=== PATIENT | male | born 1970 | race Caucasian/White ===

== ENCOUNTER 2019-11-13 11:38 | Emergency (ER) | payer OTHER, SELFPAY ==
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
[2019-11-13 11:41] VITALS: BP 152/99; PULSE 89; RESP 16; TEMP 36.7; O2SAT 96
[2019-11-13] MEDS: IBUPROFEN 600 MG TABLET PO (13:21)
[2019-11-13] MEDS: ACETAMINOPHEN 500 MG TABLET 1000 MG PO (13:22)
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
[2019-11-13 13:52] VITALS: TEMP 36.7
[2019-11-13 14:19] VITALS: BP 130/99; PULSE 78; RESP 18; O2SAT 94
== END 2019-11-13 15:16 | disposition home or self-care (01) ==
PROVIDERS: Emergency Provider Emergency Medicine; PCP Family Medicine
DX: S13.9XXA Sprain of joints and ligaments of unspecified parts of neck, initial encounter (principal); S90.112A Contusion of left great toe without damage to nail, initial encounter; I25.10 Atherosclerotic heart disease of native coronary artery without angina pectoris; E78.5 Hyperlipidemia, unspecified; I11.9 Hypertensive heart disease without heart failure; I25.2 Old myocardial infarction; Z95.5 Presence of coronary angioplasty implant and graft; Z87.891 Personal history of nicotine dependence; V43.52XA Car driver injured in collision with other type car in traffic accident, initial encounter
CPT/HCPCS: 72100; 72125; 73030; 73110; 73564; 73660; 99284; A9270

== ENCOUNTER → 2020-01-17 10:43 | Outpatient (CLI) | payer OTHER, SELFPAY ==
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
== END ==
PROVIDERS: PCP Family Medicine; Visit Provider Physician Assistant
DX: R51.9 Headache, unspecified (principal)
CPT/HCPCS: 70450

== ENCOUNTER 2020-05-20 08:41 | Emergency (ER) | payer OTHER, SELFPAY ==
[2020-05-20 08:54] VITALS: BP 146/99; PULSE 87; RESP 20; TEMP 36.7; O2SAT 97
--- NOTE | 2020-05-20 09:06 | ED.URI ---
HPI - URI/Sore Throat General Chief Complaint: Upper Respiratory Infection Stated Complaint: cough/eye irritation/congestion Time Seen by Provider: 05/20/20 08:53 Source: patient and RN notes reviewed Mode of arrival: ambulatory Limitations: no limitations History of Present Illness HPI Narrative: Patient presents today with a 12-day history of dry cough, shortness of breath at times, usually with extended coughing episodes. He does report some left eye redness and irritation x2 days. Denies sneezing, congestion, rhinorrhea, sore throat, fever, headache, nausea, vomiting, diarrhea. No history of asthma or COPD. He has been using Mucinex x2 days, which has been providing some mild relief. He had been using some DayQuil for several days without relief. He got his second COVID-19 vaccination 2 weeks ago. Denies history of environmental or seasonal allergies. MD elicited complaint: cough Related Data Home Medications Medication Instructions Recorded Confirmed aspirin 81 mg tablet,delayed 81 mg PO DAILY 04/14/19 01/05/20 release atorvastatin 80 mg tablet 80 mg PO DAILY 04/14/19 01/05/20 metoprolol succinate 25 mg 25 mg PO DAILY 04/14/19 01/05/20 tablet,extended release 24 hr Allergies Allergy/AdvReac Type Severity Reaction Status Date / Time cephalexin Allergy Severe rash Verified 01/05/20 09:48 Review of Systems Review of Systems: Narrative: CONSTITUTIONAL: Denies body aches, fever, chills, or sweats. EYES: Denies visual changes,or discharge. + Left eye redness ENT: Denies rhinorrhea, congestion, sore throat, or otalgia. CARDIOVASCULAR: Denies chest pain, palpitations, or edema. RESPIRATORY: + Cough, shortness of breath GASTROINTESTINAL: Denies abdominal pain, nausea, vomiting, or diarrhea. GENITOURINARY: Denies dysuria or hematuria. SKIN: Denies rash, itching, or wounds. MUSCULOSKELETAL: Denies back pain, joint pain, or myalgia. NEUROLOGIC: Denies headache, numbness, tingling, or weakness. PSYCH: Denies depression or anxiety. [facility] Past Medical History Medical History (Updated 05/20/20 @ 09:11 by Samantha Boyle, SPINDRAW OPERATOR, ) CAD (coronary artery disease) HLD (hyperlipidemia) Hypertension with heart disease [place] (myocardial infarction) Surgical History Surgical History Status post primary angioplasty with coronary stent Social History Social History Smoking packs per day: 1 Smoking cigarettes per day: 20.0 Years smoked: 18 Smoking pack-years: 18.00 Smoking status: Former smoker Tobacco type: cigarettes Second hand tobacco smoke exposure: No Smoking end date: 02/17/06 Alcohol intake: current Substance use: never Substance use type: does not use Gender identity (if verbalized by the patient): Male Comments At time of signature, I have reviewed and agree with nursing past medical, surgical, social and family history unless otherwise noted. Please see nursing chart for further information. There is no relevant family history pertinent to the presenting complaint Exam Narrative: Exam Narrative: GENERAL: Well-appearing, well-nourished, and in no acute distress. HEAD: Normocephalic, atraumatic. EYES: EOMI. Left eye with injected conjunctiva and chemosis. Right eye with chemosis. No active drainage. ENT: Mucous membranes pink and moist. Nares clear. No rhinorrhea. TMs normal bilaterally. Throat normal. Uvula midline. NECK: Normal AROM. Supple. No lymphadenopathy. CHEST: No respiratory distress. Clear to auscultation. HEART: Regular rate and rhythm. No murmur appreciated. Normal peripheral pulses. EXTREMITIES: Normal range of motion. No edema. SKIN: Warm, dry, no rash. Capillary refill normal. Normal skin turgor. NEURO: No focal deficits. Alert and oriented x3. Gait steady. PSYCH: Normal affect. No signs of depression or anxiety. Course Vital Si
== END 2020-05-20 09:24 | disposition home or self-care (01) ==
PROVIDERS: Emergency Provider Nurse Practitioner; PCP Family Medicine
DX: J40 Bronchitis, not specified as acute or chronic (principal); J30.9 Allergic rhinitis, unspecified; H10.13 Acute atopic conjunctivitis, bilateral; Z87.891 Personal history of nicotine dependence; I25.10 Atherosclerotic heart disease of native coronary artery without angina pectoris; E78.5 Hyperlipidemia, unspecified; I11.9 Hypertensive heart disease without heart failure; I25.2 Old myocardial infarction; Z79.82 Long term (current) use of aspirin; Z95.5 Presence of coronary angioplasty implant and graft
CPT/HCPCS: 99213; G0463

== ENCOUNTER → 2021-02-03 08:36 | Outpatient (CLI) | payer OTHER, SELFPAY ==
--- NOTE | ~2021-02-03 | XR_ITS ---
XR ankle LT 2V 02/03/2021 10:01 INDICATION: Left ankle pain PROCEDURE: 2 views left ankle COMPARISON: No prior studies for comparison. FINDINGS: Fracture, dislocation or subluxation is not identified. Ankle mortise intact. The soft tiss ues appear within normal limits. No foreign bodies are identified. IMPRESSION: 1: NO ACUTE BONE OR JOINT ABNORMALITY IDENTIFIED. Reviewed, dictated and finalized at location A. R BUILDER WINDER
--- NOTE | ~2021-02-03 | XR_ITS ---
XR hip LT 2V w AP pelvis 02/03/2021 10:01 Indication: Left hip pain Procedure: 3 views left hip including AP pelvis Comparison: No prior studies for comparison. Findings: Pelvic rings are intact. Mild symmetric osteoarthritis of the hips. Sacral foramen are symm etric. No acute fracture or traumatic malalignment. Impression: 1: No acute bone or joint abnormality. Reviewed, dictated and finalized at location A. NTAMINATION WORKER Impression: 1: No acute bone or joint abnormality.
== END ==
PROVIDERS: PCP Family Medicine; Visit Provider Family Medicine
DX: M25.572 Pain in left ankle and joints of left foot (principal); M25.552 Pain in left hip
CPT/HCPCS: 73502; 73600

== ENCOUNTER → 2021-02-28 08:46 | Outpatient (CLI) | payer OTHER, SELFPAY ==
--- NOTE | ~2021-02-28 | MR_ITS ---
EXAMINATION: MR hip LT wo con DATE: 02/28/2021 09:45 INDICATION: Articular cartilage disorder with worsening left hip pain over the past 8-9 months TECHNIQUE: Magnetic resonance imaging (MRI) of the left hip was performed without intravenous contra st. Sequences included full-field axial PD-weighted FS FSE and T1-weighted FSE, coronal of the pelvis with PD-weighted FS FSE, T2-weighted FSE and T1-weighted FSE, small field of view of the left hip wi th axial PD-weighted FS FSE, sagittal PD-weighted FS FSE, coronal PD-weighted FS FSE and coronal T2 weighted FSE. Additional radial T1-weighted FGR oriented orthogonal to the acetabular rim were obtain ed for evaluation of the labrum. COMPARISON: None FINDINGS: Bones/labrum/cartilage: Alignment is normal. No fracture, avascular necrosis or pathologic marrow replacing process. Mild pa rtial-thickness cartilage loss with smooth chondral surface of the humeral head and acetabulum at the anterior and posterior aspect of the joint space. Minimal subarticular increased signal along the po sterior rim of the acetabulum. There is mild degeneration of the posterior to posterosuperior left ac etabular labrum. Mild cystic change at the margin of the articular surface of the posterior superior left femoral head. Fluid: Symmetric physiologic amount of fluid within both hip joints. Soft tissues: Normal and symmetric muscle bulk and signal in the pelvis and visualized proximal thighs. The iliopso as, gluteal and proximal hamstring tendons are normal. There are few diverticula along the sigmoid co debbie without adjacent inflammatory change to suggest diverticulitis. 5 mm focus of intramural fat at t he left anterior bladder wall which has been present since CT dated 01/10/2017. Limited evaluation of visceral organs of the pelvis is otherwise unremarkable. No pathologically enlarged pelvic/inguinal lymphadenopathy. IMPRESSION: 1. Mild left hip osteoarthritis with degeneration of the posterior to posterosuperior left acetabular labrum. Reviewed, dictated and finalized at location A. T OF WAY SUPERVISOR IMPRESSION: 1. Mild left hip osteoarthritis with degeneration of the posterior to posterosu perior left acetabular labrum.
== END ==
PROVIDERS: PCP Family Medicine; Visit Provider Orthopaedic Surgery
DX: M24.152 Other articular cartilage disorders, left hip (principal); M16.12 Unilateral primary osteoarthritis, left hip
CPT/HCPCS: 73721

== ENCOUNTER 2021-03-21 12:22 | Outpatient (CLI) | payer OTHER, SELFPAY ==
--- NOTE | ~2021-03-21 | XR_ITS ---
EXAMINATION: XR lg joint inject/asp w image DATE: 03/21/2021 13:11 INDICATION: Left hip arthritis with pain TECHNIQUE: A time-out was performed to verify the patient's name, date of , and procedure to b e performed. The procedure including the risks, benefits, and alternatives was discussed with the pat ient. Risks discussed included bleeding and infection. The patient understood the risks and agreed to proceed. The skin overlying the left hip joint was prepped and draped in usual sterile fashion. An esthetic was administered with 1% lidocaine subcutaneously. A 22 G needle was advanced under fluoros copic guidance into the joint. Injection of 1 mL of Omnipaque 240 confirmed intra-articular position of the needle. Subsequently, injectate consisting of 4 mL of a 1:1 mixture of 0.5% bupivacaine: 40 mg/mL Depo-Medrol for a total dosage of 80 mg Depo-Medrol was instilled. Washout of contrast was seen confirming intra-articular administration. The needle was removed and the entry site was cleaned and dressed. There were no immediate complications. Fluoroscopy exposure time was 0.1 minutes. The tota l number of images was 2. Total DAP was 0.783 mGycm^2 FINDINGS: Real-time fluoroscopy demonstrates the needle in the left hip joint. Patient's pain prior t o procedure:08/26. Patient's pain following the procedure: 03/29. IMPRESSION: 1. Successful left hip joint injection of local anesthetic and steroid with decrease in the patient's presenting pain. Reviewed, dictated and finalized at location A. UTER SYSTEMS ENGINEER IMPRESSION: 1. Successful left hip joint injection of local anesthetic and steroid with dec rease in the patient's presenting pain.
== END 2021-03-21 12:23 | disposition home or self-care (01) ==
PROVIDERS: PCP Family Medicine; Visit Provider Orthopaedic Surgery
DX: M25.552 Pain in left hip (principal)
CPT/HCPCS: 20610; 77002; Q9966

== ENCOUNTER 2021-03-26 00:39 | Day surgery (SDC) | payer OTHER, SELFPAY ==
[2021-03-13 13:55] VITALS: BMI 29.9
--- NOTE | 2021-03-25 17:54 | PM.HPGS ---
History of Present Illness History of Present Illness Consent: Risks, benefits, and alternatives have been discussed and questions answered. Patient agrees to proceed with procedure. 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 HLD (hyperlipidemia) Hypertension with heart disease [place] (myocardial infarction) Other spondylosis with radiculopathy, lumbar region Weight gain Surgical History Surgical History H/O excision of mass 03/01/21 excision of 3 cm back mass Back mass 2012 Status post primary angioplasty with coronary stent x3 2007 Family History Family History Other HLD (hyperlipidemia) Hypertension Social History Social History Smoking status: Former smoker Tobacco type: smokeless tobacco Smokeless tobacco user: chewing tobacco Second hand tobacco smoke exposure: No Smoking end date: 02/17/06 Additional smoking assessment comments: Former smoker of Cigarettes Alcohol intake: current Alcohol use details: rare Substance use: never Substance use type: does not use Living arrangements: with family 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 Gender identity (if verbalized by the patient): Male Spiritual care concerns: No Meds Home Medications and Allergies Home Medications Medication Instructions Recorded Confirmed Type aspirin 81 mg tablet,delayed 81 mg PO DAILY 04/14/19 03/13/21 History release atorvastatin 80 mg tablet 80 mg PO DAILY 04/14/19 03/13/21 History metoprolol succinate 25 mg 25 mg PO DAILY 04/14/19 03/13/21 History tablet,extended release 24 hr Allergies Allergy/AdvReac Type Severity Reaction Status Date / Time cephalexin Allergy Severe rash Verified 03/26/21 09:41 Exam Resp: Auscultation: clear to auscultation bilaterally Cardio: Rate: regular rate Rhythm: regular rhythm GI: GI Palp: Yes Soft to palpation and No Tenderness to palpation present (GI) Assessment and Plan Assessment and plan (1) Colon cancer screening: Code(s): Z12.11 - Encounter for screening for malignant neoplasm of colon Status: Acute Assessment and Plan: Colonoscopy with possible biopsy or polypectomy or cautery or injection of substances.
[2021-03-26 09:42] VITALS: BP 136/94; PULSE 94; RESP 18; TEMP 37.1; O2SAT 96
--- NOTE | 2021-03-26 09:47 | WPDANESEPPF ---
Anes - Initial Pre Proc Eval Procedure: Operation Date: 03/26/21 11:00 Proposed Procedures p Screening Colonoscopy - Tenzin Gleason MD Date/Time: 03/26/21 09:47 Surgeon: Tenzin Gleason MD Pre Op Diagnosis: neoplasm screening Patient Data Age: 51 Gender: M Height: 1.83 m Weight: 113.8 kg Last Vital Signs Temp 37.1 C 03/26/21 09:42 Pulse 94 03/26/21 09:42 Resp 18 03/26/21 09:42 BP 136/94 H 03/26/21 09:42 Pulse Ox 96 03/26/21 09:42 Allergies Allergy/AdvReac Type Severity Reaction Status Date / Time cephalexin Allergy Severe rash Verified 03/26/21 09:41 Home Medications Medication Instructions Recorded Confirmed Type aspirin 81 mg tablet,delayed 81 mg PO DAILY 04/14/19 03/13/21 History release atorvastatin 80 mg tablet 80 mg PO DAILY 04/14/19 03/13/21 History metoprolol succinate 25 mg 25 mg PO DAILY 04/14/19 03/13/21 History tablet,extended release 24 hr Patient hx anesthesia problems: none Family hx anesthesia problems: none Results Review: All pre-operative results and documents have been reviewed as part of the pre-operative evaluation. 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 HLD (hyperlipidemia) Hypertension with heart disease [place] (myocardial infarction) Other spondylosis with radiculopathy, lumbar region Weight gain Surgical History Surgical History (Updated 03/26/21 @ 07:40 by Jesse Delacruz DO) H/O excision of mass 03/01/21 excision of 3 cm back mass Back mass 2012 Status post primary angioplasty with coronary stent x3 2007 Family History Family History Other HLD (hyperlipidemia) Hypertension Social History Social History Smoking status: Former smoker Tobacco type: smokeless tobacco Smokeless tobacco user: chewing tobacco Second hand tobacco smoke exposure: No Smoking end date: 02/17/06 Additional smoking assessment comments: Former smoker of Cigarettes Alcohol intake: current Alcohol use details: rare Substance use: never Substance use type: does not use Living arrangements: with family 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 Informed Consent: The patient's anesthetic plan and its attendant risks and benefits were discussed with the patient/family/POA. Questions were solicited and answers provided to the satisfaction of the patient/family/POA.
[2021-03-26] MEDS: LACTATED RINGERS 1,000 ML 150 ML IV CONT (09:52)
[2021-03-26 10:38] VITALS: BP 114/82; PULSE 78; RESP 18; O2SAT 93
[2021-03-26 10:48] VITALS: BP 117/88; PULSE 72; RESP 18; O2SAT 94
[2021-03-26 10:58] VITALS: BP 135/97; PULSE 68; RESP 18; O2SAT 97
== END 2021-03-26 11:09 | disposition home or self-care (01) ==
PROVIDERS: PCP Family Medicine; Visit Provider Internal Medicine Gastroenterology
PROC: 0DJD8ZZ Inspection of Lower Intestinal Tract, Via Natural or Artificial Opening Endoscopic (ICD-10-PCS; CPT 45378; principal; 2021-03-26 11:00)
DX: Z12.11 Encounter for screening for malignant neoplasm of colon (principal); K64.8 Other hemorrhoids; K57.30 Diverticulosis of large intestine without perforation or abscess without bleeding; I11.9 Hypertensive heart disease without heart failure; I25.2 Old myocardial infarction; E78.5 Hyperlipidemia, unspecified; M47.26 Other spondylosis with radiculopathy, lumbar region; F41.9 Anxiety disorder, unspecified; I25.10 Atherosclerotic heart disease of native coronary artery without angina pectoris; Z79.82 Long term (current) use of aspirin; Z95.5 Presence of coronary angioplasty implant and graft; Z87.891 Personal history of nicotine dependence; E66.9 Obesity, unspecified; Z68.34 Body mass index [BMI] 34.0-34.9, adult
CPT/HCPCS: 45378; J2704; J7120

== ENCOUNTER 2021-04-09 08:49 | Outpatient (RCR) | payer OTHER, SELFPAY ==
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
--- NOTE | 2021-04-16 08:20 | PCPTNOTE ---
Patient called & cancelled his remaining scheduled appointment on 04/13/2021 due to going out of time and not knowing when he will return. His chart will be kept open until the end of his plan of care. If he does not call to reschedule by then he will be discharged at that time.
--- NOTE | 2021-04-30 13:56 | PCPTNOTE ---
Admitting Provider: Attending Provider: Braeden Baca MD Patient:Nazario Whitley Date of :1970 Patient has not returned for any further treatments since 04/09/2021, therefore he will be discharged at this time. Patient?s initial visit was on 04/09/2021 09:00 and he had a total of 1 visit. He called on 04/13/21 and stated he was out of town for at least 2 weeks and would follow up. He called again 04/30/21 to report that he is still out of town and will be for the foreseeable future. Pt is to be discharged at this time, he will need new orders if he is to return to therapy. Thank you for referring this patient to [facility]. Please review, sign, date and return this discharge summary KRYSTA. I have been updated about the patient's current status and I agree with discharge from the above service at this time. Referring Physician Date
== END 2021-05-01 10:54 | disposition home or self-care (01) ==
LOC: ANHPT 08:49
PROVIDERS: PCP Family Medicine; Referring Provider Orthopaedic Surgery; Visit Provider Orthopaedic Surgery
DX: M16.12 Unilateral primary osteoarthritis, left hip (principal); M24.152 Other articular cartilage disorders, left hip
CPT/HCPCS: 97110; 97161

== ENCOUNTER 2021-12-08 09:16 | Emergency (ER) | payer OTHER, SELFPAY ==
--- NOTE | ~2021-12-08 | XR_ITS ---
EXAMINATION: XR elbow RT min 3V INDICATION: Right elbow pain after fall TECHNIQUE: Four views of the right elbow are obtained. COMPARISON: None available FINDINGS: There is no fracture, dislocation, or subluxation. The bones, soft tissues, and joint space s are normal. IMPRESSION: 1. No acute osseous abnormality. Reviewed, dictated and finalized at location A.
--- NOTE | 2021-12-08 09:20 | ED.GENADULT ---
HPI - General Adult General Chief complaint: Extremity Injury, Upper Stated complaint: right elbow pain Time Seen by Provider: 12/08/21 09:24 Source: patient Mode of arrival: ambulatory Limitations: no limitations History of Present Illness HPI narrative: 51-year-old male patient presents to the [facility] with complaints of right elbow pain for several months now. Patient states the pain is getting worse especially the last 2 days and has been causing him not to be able to sleep. 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 Patient states he does do a lot of overhead work as well as low work. Patient states he has tried [id number] arthritis cream and Tylenol arthritis that really has not helped much. Denies any numbness or tingling to the hands but states that the pain is starting to radiate up to the right shoulder and down to the right wrist. Denies any pain to the wrist at this time. Patient states that the pain rates at 10 out of 10 at this time. Related Data Home Medications Medication Instructions Recorded Confirmed aspirin 81 mg tablet,delayed 81 mg PO DAILY 04/14/19 12/08/21 release atorvastatin 80 mg tablet 80 mg PO DAILY 04/14/19 12/08/21 metoprolol succinate 25 mg 25 mg PO DAILY 04/14/19 12/08/21 tablet,extended release 24 hr Allergies Allergy/AdvReac Type Severity Reaction Status Date / Time cephalexin Allergy Severe rash Verified 12/08/21 09:42 Review of Systems Review of Systems: CONSTITUTIONAL: Denies fever, chills, or sweats. EYES: Denies visual changes, redness, or discharge. ENT: Denies rhinorrhea, congestion, sore throat, or otalgia. CARDIOVASCULAR: Denies chest pain, palpitations, or edema. RESPIRATORY: Denies cough or dyspnea. GASTROINTESTINAL: Denies abdominal pain, nausea, vomiting, or diarrhea. GENITOURINARY: Denies dysuria or hematuria. SKIN: Denies rash or itching. MUSCULOSKELETAL: Denies back pain, joint pain, or myalgia. Positive right elbow pain NEUROLOGIC: Denies headache, numbness, or weakness. PSYCHIATRIC: Denies anxiety or depression. 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 HLD (hyperlipidemia) Hypertension with heart disease Old [place] (myocardial infarction) Other spondylosis with radiculopathy, lumbar region Weight gain Surgical History Surgical History H/O excision of mass 03/01/21 excision of 3 cm back mass Back mass 2012 Status post primary angioplasty with coronary stent x3 2007 Family History Family History Other HLD (hyperlipidemia) Hypertension Social History Social History Smoking status: Former smoker Tobacco type: smokeless tobacco Smokeless tobacco user: chewing tobacco Second hand tobacco smoke exposure: No Smoking end date: 02/17/06 Additional smoking assessment comments: Former smoker of Cigarettes Alcohol intake: current Alcohol use details: rare Substance use: never Substance use type: does not use 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 There is no relevant family history pertinent to the presenting complaint. Exam Narrative: GENERAL: Well-appearing, well-nourished, and in no acute distress. HEAD: Normocephalic, atraumatic. EYES: PERRLA and EOMI. ENT: Nares clear, no rhinorrhea or epistaxis. Mucous membranes moist. N
[2021-12-08 09:29] VITALS: BP 160/109; PULSE 74; RESP 16; TEMP 36.7; O2SAT 99
[2021-12-08] MEDS: KETOROLAC (*BKC) 60 MG/2 ML VIAL IM (10:09)
== END 2021-12-08 10:49 | disposition home or self-care (01) ==
PROVIDERS: Emergency Provider Nurse Practitioner Family; PCP Family Medicine
DX: M25.521 Pain in right elbow (principal); M16.9 Osteoarthritis of hip, unspecified; I25.10 Atherosclerotic heart disease of native coronary artery without angina pectoris; E78.5 Hyperlipidemia, unspecified; I10 Essential (primary) hypertension; I25.2 Old myocardial infarction; Z87.891 Personal history of nicotine dependence
CPT/HCPCS: 73080; 96372; 99213; G0463; J1885

== ENCOUNTER 2022-02-07 08:23 | Outpatient (CLI) | payer OTHER, SELFPAY ==
--- NOTE | 2022-02-07 11:00 | NEURO_ITS ---
Impression: # Complains of right elbow sharp pain. # Right ulnar neuropathy. # No Carpal Tunnel Syndrome. # Normal needle/EMG exam. Motor Nerve Conduction Upper Extremities Median Nerve Conduction Velocity (m/sec) Terminal Latency (msec) Response Voltage(mV) Elbow-Wrist Wrist Elbow Wrist Right 59 3.4 3 3 Left 58 3.4 3 3 Ulnar Nerve Conduction Velocity (m/sec) Terminal Latency (msec) Response Voltage(mV) Above Elbow Below Elbow Wrist Above Elbow Below Elbow Wrist Right 50 58 2.3 3 2 4 Left 60 2.5 2 3 F-Wave Latency Median (ms) Ulnar (ms) Right 29.8 30.6 Left 30.6 30.4 Sensory Nerve Conduction Upper Extremities Median Nerve Stimulation Terminal Latency (msec) Wrist/Digit Response Voltage (uV) Wrist Right 3.3/3.2 18/36 Left 3.0/3.1 30/38 Ulnar Nerve Stimulation Terminal Latency (msec) Wrist/Digit Response Voltage (uV) Wrist Right 2.8 27 Left 2.8 40 Radial Nerve Terminal Latency (msec) Response Voltage(mV) Right 2.6 18 Left 2.0 17 Left Right Muscles Examined Fibrillation Fasciculation Scarcity Voltage Duration Left Right Left Right Left Right Left Right Left Right Deltoid Biceps X X Brachioradialis Triceps X X Pronator Teres X X Ext Indicis X X Ext Digitorum X X Abd Poll Brev X X 1st Dorsal Interosseus X X Abd Dig Min MTDD
== END 2022-02-07 08:24 | disposition home or self-care (01) ==
PROVIDERS: PCP Family Medicine; Visit Provider Nurse Practitioner Family
DX: R20.2 Paresthesia of skin (principal); G56.01 Carpal tunnel syndrome, right upper limb
CPT/HCPCS: 95886; 95911

== ENCOUNTER 2022-03-04 21:37 | Observation (INO) | payer OTHER, SELFPAY ==
--- NOTE | ~2022-03-04 | CT_ITS ---
EXAMINATION: CTA brain DATE: 03/06/2022 12:55 INDICATION: Acute stroke. TECHNIQUE: Computed tomographic angiography (CTA) of the head was performed without and with 100 mL O mnipaque-350 intravenous contrast. Automated exposure control and iterative reconstruction technique were employed. The dose-length product was 1104.34 mGy-cm. Maximum intensity projection 3D reconstru ctions were created. Volume-rendered 3D reconstructions of the intracranial arteries were created by the technologist on a separate workstation. COMPARISON: Head CT 03/05/2022, brain MRI 03/05/2022 FINDINGS: There is a small acute infarct in posterior right frontal lobe. There is no intracranial he morrhage or abnormal mass lesion. The ventricles are normal in size. The paranasal sinuses are clear. The orbits are normal. The mastoid air cells are normal. The vertebral arteries are codominant. Ther e is no significant stenosis of basilar artery or the posterior cerebral arteries. There is no signif icant stenosis of the intracranial internal carotid arteries or anterior or middle cerebral arteries. Anterior communicating artery is normal. The posterior communicating arteries are normal. There is n o aneurysm. IMPRESSION: 1. Small acute infarct in posterior right frontal lobe. 2. No aneurysm or significant intracranial arterial stenosis. Reviewed, dictated and finalized at location A. 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
--- NOTE | ~2022-03-04 | CT_ITS ---
Non-contrast Head CT History: Left-sided numbness COMPARISON: 01/17/2020 Technique: Axial non-contrast imaging of the brain was performed. Dose reduction technique was used on this scan by utilizing automated exposure control and iterative reconstruction technique. The dose -length product (DLP) was 605.33 mGy-cm. Findings: There is no evidence of intracranial hemorrhage, mass lesion, or acute infarct. Brain par enchyma appears normal. The ventricles and subarachnoid spaces are normal in size. The calvarium ap pears normal. The visualized paranasal sinuses and mastoid air cells are clear. Impression: No significant abnormality seen. Reviewed, dictated and finalized at location . INSTALLER Impression: No significant abnormality seen.
--- NOTE | ~2022-03-04 | XR_ITS ---
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 FULL L.SIDE NUMBNESS FOR A MINUTE EARLIER Comparison: None available. RESULT: Lines, tubes, and devices: None. Lungs and pleura: Low volumes with bronchovascular crowding. Cardiomediastinal silhouette: Unremarkable. Other: No acute osseous or upper abdominal finding. IMPRESSION: No acute cardiopulmonary process. Reviewed, dictated and finalized at location K. T CONTROLS SPECIALIST
--- NOTE | ~2022-03-04 | US_ITS ---
EXAMINATION: US carotid duplex BI DATE: 03/05/2022 12:46 INDICATION: Transient ischemic episode with left-sided numbness TECHNIQUE: Grayscale, color Doppler, and pulsed Doppler images of the cervical carotid arteries were obtained. The degree of vessel stenosis is placed in one of the following categories: normal, <50%, 5 0-69%, >=70% but less than near-occlusion, near-occlusion, or total occlusion. Note that percent sten osis relative to normal distal artery lumen diameter is indirectly measured from velocity measurement s as described by Demetris, et al. Radiology 2003; 229:340-346. COMPARISON: None. FINDINGS: RIGHT: The right common carotid artery (CCA) peak systolic velocity (PSV) is 91 cm/s. The right internal car otid artery (ICA) PSV is 64 cm/s. The right ICA end-diastolic velocity (EDV) is 22 cm/s. The right IC A/CCA PSV ratio is 0.7. Grayscale and color Doppler images yield an estimate of <50% diameter reducti on from plaque in the ICA. The external carotid artery (ECA) PSV is 126 cm/s. There is antegrade flow in the right vertebral artery. LEFT: The left CCA PSV is 98 cm/s. The left ICA PSV is 45 cm/s. The left ICA EDV is 18 cm/s. The left ICA/C CA PSV ratio is 0.5. Grayscale and color Doppler images yield an estimate of <50% diameter reduction from plaque in the ICA. The ECA PSV is 72 cm/s. There is antegrade flow in the left vertebral artery. IMPRESSION: 1. <50% stenosis in the right internal carotid artery. 2. <50% stenosis in the left internal carotid artery. Reviewed, dictated and finalized at location A. 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
--- NOTE | ~2022-03-04 | MR_ITS ---
MRI of the brain Clinical History: TIA Technique: Axial and sagittal T1-weighted images were acquired. These were followed by axial T2-weigh cj, diffusion weighted, gradient, and FLAIR images. Following intravenous administration of 20 cc Mu ltiHance gadolinium, T1-weighted fat-sat imaging was performed in the axial and coronal planes. Findings: There is 8mm focal area of restricted diffusion in the subcortical white matter in the righ t frontal lobe (axial diffusion images 22-23), compatible with focal acute infarct. No other acute is chemia identified. No intracranial hemorrhage or mass lesion. No other significant signal abnormality seen in the remainder of the brain parenchyma. Ventricles and subarachnoid spaces are unremarkable. Orbits are unremarkable. Paranasal sinuses and m astoid air cells are clear. Major intracranial flow voids are intact. Sagittal midline structures are intact. No abnormal postcontrast enhancement identified. IMPRESSION: 8 mm focal acute infarct in the subcortical right frontal lobe white matter. Reviewed, dictated and finalized at location . S REVIEW NURSE
--- NOTE | 2022-03-04 21:39 | ECG_ITS ---
Measurements Intervals Fries Rate: 84 P: 12 PA: 178 QRS: -7 QRSD: 90 T: 10 QT: 374 QTc: 442 Interpretive Statements SINUS RHYTHM MINIMAL Q WAVES- HIGH LATERAL LEADS NONSPECIFIC T-WAVE ABNORMALITY- ANTEROLAT/INF LEADS BASELINE ARTIFACT- I, II, III, AVR, AVL BORDERLINE ECG NO PREVIOUS ECG AVAILABLE FOR COMPARISON Electronically Signed On 03-05-2022 8:10:55 DIRECT MARKETING INTERN by Enio Singer D.O.
[2022-03-04 21:40] VITALS: BP 167/109; PULSE 88; RESP 14; TEMP 36.4; O2SAT 98
[2022-03-04 21:54] LABS: Basophils Absolute Auto 0.1 K/mm3 (0.0-0.1); Basophils Percent Auto 0.7 % (0.2-1.2); Eosinophils Absolute Auto 0.1 K/mm3 (0-0.3); Eosinophils Percent Auto 1.4 % (0-4.4); Hemoglobin 16.8 g/dL (14.0-18.0); Immature Granulocyte Absolute 0.04 K/mm3 (0.00-0.031); Immature Granulocyte Percent A 0.4 % (0-0.5); Lymphocytes Absolute Auto 3.95 K/mm3 (0.9-3.2); Lymphocytes Percent Auto 41.6 % (18.3-44.2); Mean Corpuscular HGB Conc 34.3 g/dl (32-36); Mean Corpuscular Hemoglobin 30.3 pg (26-34); Mean Corpuscular Volume 88.3 fl (80-100); Mean Platelet Volume 10.7 fl (7.4-10.4); Monocytes Absolute Auto 0.7 K/mm3 (0.1-0.6); Monocytes Percent Auto 7.6 % (2.6-8.5); Neutrophils Absolute Auto 4.6 K/mm3 (1.3-6.7); Neutrophils Percent Auto 48.3 % (45.5-73.1); Platelet Count Result 309 k/mm3 (150-375); Red Blood Count 5.55 M/mm3 (4.6-6.20); Red Cell Distribution Width 13.6 % (11.5-14.5); White Blood Count 9.5 K/mm3 (4.5-10.0)
[2022-03-04 22:04] LABS: INR 0.9; Prothrombin Time 12.1 Seconds (11.1-14.7)
[2022-03-04 22:05] LABS: Partial Thromboplastin Time 30.6 SECONDS (22.3-36.8)
[2022-03-04 22:06] LABS: Alanine Aminotransferase 40 U/L (6-50); Albumin Level 4.6 g/dL (3.5-5.1); Alkaline Phosphatase 72 U/L (38-126); Anion Gap 8 mmol/L (8-16); Aspartate Amino Transferase 33 U/L (17-59); Bilirubin,Total 1.9 mg/dL (0.2-1.3); Blood Urea Nitrogen 18 mg/dL (9-20); Calcium 9.2 mg/dL (8.4-10.2); Carbon Dioxide 24 mmol/L (22-30); Chloride 103 mmol/L (98-107); Estimated CRCL calculation 138 ml/min; Estimated Glomerular Filt Rate > 60; Glucose 118 mg/dL (65-110); Lipase 229 U/L (23-300); Potassium 4.5 mmol/L (3.4-5.0); Sodium 135 mmol/L (137-145)
[2022-03-04 22:18] LABS: Troponin I < 0.012 ng/mL (0.000-0.034)
[2022-03-05] VITALS (11 sets, daily range): BP systolic 115–144; BP diastolic 82–99; PULSE 61–78; RESP 16–20; TEMP 36–36.7; O2SAT 95–100
--- NOTE | 2022-03-05 | ECHO_ITS ---
Patient Info Name: Nazario Whitley Age: 52 years : 1970 Gender: Male Ht: 71 in Wt: 250 lbs BSA: 2.42 m2 HR: 73 bpm BP: 128 / 86 mmHg Technical Quality: Fair Exam Date: 03/05/2022 10:26 AM Exam Location: [facility] Patient Status: Inpatient Admit Date: 03/05/2022 Staff Ordering Physician: Nithya Pineda DO Paster Supervisor: Marilyn Lin RDCS Attending Provider: Ni Aguilar MD Exam Type: CA echo dop bubble study w con Study Info Indications - TIA Complete two-dimentional, color flow and Doppler transthoracic echocardiogram is performed with agitated saline and with contrast to opacify the left ventricle and to improve the delineation of the left ventricle endocardial borders. Contrast/Agitated Saline Contrast/Ag. Saline: Agitated Saline Amount: 20.00 ml Administered By: Marley Elizabeth RDCS Existing IV Access: Yes IV Access Condition: patent with no signs of infiltration Contrast/Ag. Saline: Definity Amount: 4.00 ml Administered By: Marilyn Lin RDCS Existing IV Access: Yes IV Access Condition: patent with no signs of infiltration Summary 1. Left ventricular chamber dimension is normal. 2. Definity contrast administered improved wall motion interpretation. 3. Left ventricular systolic function is normal, estimated at 55-60%. 4. There is mildly increased left ventricular wall thickness. 5. The left ventricular diastolic function is grade I diastolic dysfunction. 6. E/e' 8 is minimally elevated. 7. Left atrial chamber dimension is mildly enlarged. 8. No pulmonary hypertension, estimated pulmonary arterial systolic pressure is 21 mmHg. Left Ventricle E/e' 8 is minimally elevated. Definity contrast administered improved wall motion interpretation. Left ventricular chamber dimension is normal. Left ventricular systolic function is normal, estimated at 55-60%. There is mildly increased left ventricular wall thickness. The left ventricular diastolic function is grade I diastolic dysfunction. Right Ventricle Right ventricular chamber dimension is normal. Right ventricular systolic function is normal. Left Atria Left atrial chamber dimension is mildly enlarged. Right Atria Right atrial chamber dimension is normal. Atrial Septum Agitated saline injection with and without valsalva maneuver opacified right sided cardiac chambers without obvious shunt to left sided cardiac chambers. Interatrial septum not well visualized by 2D and agitated saline imaging. Aortic Valve The aortic valve is trileaflet. There is no aortic valve stenosis. There is no aortic valve regurgitation. Pulmonic Valve There is no pulmonic regurgitation. Mitral Valve There is no mitral valve stenosis. There is no mitral valve regurgitation. Tricuspid Valve There is no tricuspid valve regurgitation. No pulmonary hypertension, estimated pulmonary arterial systolic pressure is 21 mmHg. Pericardium/Pleural There is no pericardial effusion. Inferior Vena Cava Normal inferior vena cava with >50% collapse upon inspiration consistent with normal right atrial pressure, 5 mmHg. Aorta The aortic root size at the sinus of Valsalva is normal. Left Ventricular Outflow Tract Name Value Normal
[2022-03-05 03:01] LABS: Troponin I < 0.012 ng/mL (0.000-0.034)
--- NOTE | 2022-03-05 05:11 | ED.CHESTPAIN ---
HPI - Chest Pain General Chief Complaint: Chest Pain Stated Complaint: left sided numbness with slurred speech - CP Time Seen by Provider: 03/05/22 01:26 History of Present Illness HPI narrative: Patient is a 52-year-old male who presents ER with strokelike symptoms. At roughly 9 PM he developed sudden onset left arm and left face numbness. Lasted approximately 2 minutes. He reports prior in the day he had been having some right-sided shoulder pain and for 2 days prior to that he been having some intermittent central chest discomfort. He has history of coronary disease with multiple stents. 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 Denies fevers or chills or sweats. He has been compliant with home medication. Symptoms resolved prior to arrival in the ER. Related Data Home Medications Medication Instructions Recorded Confirmed aspirin 81 mg tablet,delayed 81 mg PO DAILY 04/14/19 12/10/21 release atorvastatin 80 mg tablet 80 mg PO DAILY 04/14/19 12/10/21 metoprolol succinate 25 mg 25 mg PO DAILY 04/14/19 12/10/21 tablet,extended release 24 hr Allergies Allergy/AdvReac Type Severity Reaction Status Date / Time cephalexin Allergy Severe rash Verified 03/04/22 21:46 tramadol AdvReac Mild Sweating Uncoded 03/04/22 21:46 Review of Systems Review of Systems: All systems reviewed & are unremarkable except as noted in HPI and below Constitutional: Constitutional: Denies chills and Denies fatigue ENT: Denies nasal congestion and Denies sore throat Cardiovascular: Cardiovascular: Reports chest pain, Denies rapid heart rate and Denies radiating jaw, neck or arm pain Respiratory: Respiratory: Denies cough and Denies dyspnea Gastrointestinal: Gastrointestinal: Denies abdominal pain, Denies nausea and Denies vomiting Neurologic: Denies headache(s), Denies focal weakness and Reports numbness PMFSH Past Medical History Medical History (Updated 03/05/22 @ 06:45 by Ady Malik MD) Anxiety Arthritis Arthritis of left hip CAD (coronary artery disease) Cubital tunnel syndrome 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 HLD (hyperlipidemia) Hypertension with heart disease Lateral epicondylitis Lateral epicondylitis of right elbow Medial epicondylitis, left elbow Numbness and tingling of both upper extremities Old [place] (myocardial infarction) Other spondylosis with radiculopathy, lumbar region Right lateral epicondylitis Weight gain Surgical History Surgical History H/O excision of mass 03/01/21 excision of 3 cm back mass Back mass 2012 Status post primary angioplasty with coronary stent x3 2007 Family History Family History Other HLD (hyperlipidemia) Hypertension Social History Social History Smoking status: Former smoker Tobacco type: smokeless tobacco Smokeless tobacco user: chewing tobacco Second hand tobacco smoke exposure: No Smoking end date: 02/17/06 Additional smoking assessment comments: Former smoker of Cigarettes Alcohol intake: current Alcohol use details: rare Substance use: never Substance use type: does not use 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 HEAD: Normocephalic, atraumatic. EYES: PERRL and EOMI. ENT: Mucous membranes moist. CHEST: Clear to auscultation. No respiratory distress. HEART: Regular rate and rhythm. Normal peripheral pulses. ABDOMEN: Soft, nontender, nondistended. EXTREMITIES: Normal range of motion. No edema. SKIN: Warm, dry, no rash. NEURO: No focal deficits. No upper or lower extremity drift. Gross sensation intact. No facial droop. Clear speech. Alert and oriented x3. PSYCH: Normal moo
[2022-03-05 05:42] LABS: Troponin I < 0.012 ng/mL (0.000-0.034)
[2022-03-05 06:01] LABS: Influenza A QL RT-PCR Negative (Negative); Influenza B QL RT-PCR Negative (Negative); RSV RNA, RT-PCR Negative (Negative); SARS-CoV-2 RNA PCR Negative
--- NOTE | 2022-03-05 07:14 | PC.NURSE ---
Report given to Maddy PARKER
--- NOTE | 2022-03-05 08:10 | PM.IMHP ---
H&P: HPI History of Present Illness Date/Time: 03/05/22 08:10 Chief Complaint: Left arm and left face numbness Narrative: 52-year-old male with past medical history significant for CO with several stents in the past (he sees Cardiology at [facility]), hyperlipidemia, hypertension, heart disease presenting with sudden onset of left upper extremity and left face numbness and paresthesias that lasted for approximately 2 minutes then completely resolved. He denies any other associated symptoms. No chest pain or shortness of breath. No nausea, vomiting or diarrhea. No fevers or chills. He has never had anything like this before. He denies any associated headache or vision changes. In the ER, vital signs and labs were all within normal limits. CT head within normal limits. Patient was admitted with TIA workup and neuro consult. 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 HLD (hyperlipidemia) Hypertension with heart disease Lateral epicondylitis Lateral epicondylitis of right elbow Medial epicondylitis, left elbow Numbness and tingling of both upper extremities Old [place] (myocardial infarction) Other spondylosis with radiculopathy, lumbar region Right lateral epicondylitis Weight gain Surgical History Surgical History H/O excision of mass 03/01/21 excision of 3 cm back mass Back mass 2012 Status post primary angioplasty with coronary stent x3 2007 Family History Family History Other HLD (hyperlipidemia) Hypertension Social History Social History Smoking status: Former smoker Tobacco type: cigarettes Second hand tobacco smoke exposure: No Smoking end date: 02/17/06 Additional smoking assessment comments: Former smoker of Cigarettes Alcohol intake: never Alcohol use details: rare Substance use: never Substance use type: does not use Lack of Transportation: No Lack of Food: Never True Current Housing: I Have Housing Concerned About Future Housing: No Difficulty Paying Gas/Electric Bills: No Difficulty Paying for Meds: No Currently Unemployed: No Education: High School Diploma/GED Difficulty w/ Childcare or Family Care: No 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 Gender identity (if verbalized by the patient): Male Spiritual care concerns: No Meds Home Medications and Allergies Home Medications Medication Instructions Recorded Confirmed Type aspirin 81 mg tablet,delayed 81 mg PO DAILY 04/14/19 03/05/22 History release atorvastatin 80 mg tablet 80 mg PO DAILY 04/14/19 03/05/22 History metoprolol succinate 25 mg 25 mg PO DAILY 04/14/19 03/05/22 History tablet,extended release 24 hr Allergies Allergy/AdvReac Type Severity Reaction Status Date / Time cephalexin Allergy Severe rash Verified 03/04/22 21:46 tramadol AdvReac Mild Sweating Uncoded 03/04/22 21:46 Vital Signs Vital Signs - 24 hr 03/04/22 21:40 03/05/22 01:42 03/05/22 03:37 Temperature 97.6 F Pulse Rate 88 78 68 Respiratory Rate 14 17 20 Blood Pressure 167/109 H 134/93 H 139/88 Pulse Oximetry 98 96 97 Oxygen Delivery Room Air 03/05/22 05:21 03/05/22 07:54 Temperature Pulse Rate 61 78 Respiratory Rate 16 16 Blood Pressure 128/86 Pulse Oximetry 98 95 Oxygen Delivery Exam Narrative: General: No acute distress, alert and oriented per baseline HEENT: Atraumatic, normocephalic, mucous membranes moist CV: Regular rate and rhythm, S1, S2 Lungs: Clear to auscultat
--- NOTE | 2022-03-05 10:42 | WPDNEURCNPN ---
Assessment and Plan Assessment and plan (1) Brain TIA: Code(s): G45.9 - Transient cerebral ischemic attack, unspecified Status: Acute (2) CAD (coronary artery disease): Qualifiers: Associated angina: unspecified whether angina present Coronary Disease-Associated Artery/Lesion type: unspecified vessel or lesion type [place] vs. transplanted heart: unspecified whether [place] or transplanted heart Qualified Code(s): I25.10 - Atherosclerotic heart disease of [place] coronary artery without angina pectoris Code(s): I25.10 - Atherosclerotic heart disease of [place] coronary artery without angina pectoris Status: Acute (3) HLD (hyperlipidemia): Code(s): E78.5 - Hyperlipidemia, unspecified Status: Acute (4) Hypertension with heart disease: Code(s): I11.9 - Hypertensive heart disease without heart failure Status: Acute Plan Nazario Whitley is a 52 year old male with a history of coronary artery disease, HLD, HTN, prior CA presenting due to concerns for TIA. - Check MRI brain and CTA brain/carotid - Surface echo with bubble study - Continue Aspirin 81mg daily - Continue Lipitor 80mg daily - Add Plavix for 3 weeks Consult date: 03/05/22 Reason for consult: TIA HPI: Nazario Whitley is a 52 year old male with a history of coronary artery disease, HLD, HTN, prior CA presenting due to concerns for TIA. Patient's last known well was approximately 2100 on 03/04/22. He had a two minute episode of left face and upper extremity numbness. He denied any weakness, speech difficulties, vision change, or any other focal neurological symptom. He presented to [facility] ED where BP was in the 160s systolic initially. CT head was negative for acute process. CTA was not completed. In the ED, he had a non-focal neurological exam. He was admitted for TIA work-up. He takes daily Aspirin 81mg and Lipitor 80mg daily. He has not had any focal neurological symptoms in the past. He had an CA at age 36. He has a family history of early cardiac disease in maternal grandfather who in his 40s from CA, but no early stroke in family history. He does not smoke. Review of Systems Constitutional: Constitutional: Reports no additional constitutional complaints Eyes: Eyes: Reports no additional eye complaints ENT: Reports system reviewed and no additional complaints, except as documented Cardiovascular: Cardiovascular: Reports no additional cardiovascular complaints Respiratory: Respiratory: Reports no additional respiratory complaints Gastrointestinal: Gastrointestinal: Reports no additional gastrointestinal complaints Genitourinary: Genitourinary: Reports no additional male genitourinary complaints Musculoskeletal: Musculoskeletal: Reports arthralgias Integumentary/Breasts: Skin/Breast: Reports system reviewed and no additional complaints, except as docu Neurologic: Reports as per HPI Psychiatric: Psychiatric: Reports no additional psychiatric complaints PMFSH Past Medical History Medical History Anxiety Arthritis Arthritis of left hip CAD (coronary artery disease) Cubital tunnel syndrome 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
[2022-03-05] MEDS: PERFLUTREN LIPID MICROSPHERES 1.5 ML VIAL DILUTED TO 10 ML TOTAL VOLUME IV PUSH (11:05)
[2022-03-06] VITALS: PULSE 64
[2022-03-06 04:00] VITALS: PULSE 60
[2022-03-06 06:00] VITALS: BP 130/98; PULSE 65; RESP 18; TEMP 35.9; O2SAT 98
[2022-03-06 08:00] VITALS: BP 144/100; PULSE 72; PULSE 76; RESP 16; TEMP 36.4; O2SAT 92
[2022-03-06 08:57] VITALS: PULSE 75; O2SAT 94
[2022-03-06] MEDS: CLOPIDOGREL BISULFATE 75 MG TABLET PO (08:57)
--- NOTE | 2022-03-06 11:11 | WPDNEUROPN ---
Progress Note: A&P Assessment and Plan (1) Acute CVA (cerebrovascular accident): Code(s): I63.9 - Cerebral infarction, unspecified Status: Acute (2) Hypertension with heart disease: Code(s): I11.9 - Hypertensive heart disease without heart failure Status: Acute (3) CAD (coronary artery disease): Qualifiers: Coronary Disease-Associated Artery/Lesion type: unspecified vessel or lesion type [place] vs. transplanted heart: unspecified whether [place] or transplanted heart Associated angina: unspecified whether angina present Qualified Code(s): I25.10 - Atherosclerotic heart disease of [place] coronary artery without angina pectoris Code(s): I25.10 - Atherosclerotic heart disease of [place] coronary artery without angina pectoris Status: Acute (4) HLD (hyperlipidemia): Code(s): E78.5 - Hyperlipidemia, unspecified Status: Acute Plan Nazario Whitley is a 52 year old male with a history of coronary artery disease, HLD, HTN, prior MN presenting due to concerns with LUE and facial numbness. Found to have acute stroke in the R subcortical frontal region. - Continue Aspirin 81mg daily - Continue Lipitor 80mg daily - Add Plavix for 3 weeks - Once CTA brain is complete, okay to discharge from neurology standpoint Subjective Date/time seen: 03/06/22 11:11 Interval history: Nazario Whitley is a 52 year old male with a history of coronary artery disease, HLD, HTN, prior MN presenting due to concerns for TIA. Patient's last known well was approximately 2100 on 03/04/22. He had a two minute episode of left face and upper extremity numbness. He denied any weakness, speech difficulties, vision change, or any other focal neurological symptom. He presented to [facility] ED where BP was in the 160s systolic initially. CT head was negative for acute process. CTA was not completed. In the ED, he had a non-focal neurological exam. He was admitted for TIA work-up. He takes daily Aspirin 81mg and Lipitor 80mg daily. He has not had any focal neurological symptoms in the past. He had an MN at age 36. He has a family history of early cardiac disease in maternal grandfather who in his 40s from [place], but no early stroke in family history. He does not smoke. MRI brain showed 8mm focal acute infarct in the right subcortical frontal region. Echocardiogram was unrevealing. Carotid Doppler showed <50% stenosis bilaterally. Patient denies any new complaints other than feeling more anxious. Review of Systems Constitutional: Constitutional: Reports no additional constitutional complaints Eyes: Eyes: Reports no additional eye complaints ENT: Reports system reviewed and no additional complaints, except as documented Cardiovascular: Cardiovascular: Reports no additional cardiovascular complaints Respiratory: Respiratory: Reports no additional respiratory complaints Gastrointestinal: Gastrointestinal: Reports no additional gastrointestinal complaints Genitourinary: Genitourinary: Reports no additional male genitourinary complaints Musculoskeletal: Musculoskeletal: Reports no additional musculoskeletal complaints Integumentary/Breasts: Skin/Breast: Reports system reviewed and no additional complaints, except as docu Neurologic: Reports as per HPI Psychiatric: Psychiatric: Reports anxiety Exam Const: General: comfortable and no acute distress HENMT: Mouth: Yes moist mucous membranes Eyes: Pupils: Equal, round and reactive pupils present EOM: EOMs intact bilaterally Resp: Effort & Inspection: normal respiratory effort Auscultation: clear to auscultation bilaterally Cardio: Rate: regular rate Rhythm: regular rhythm GI: GI Palp: Yes Soft to palpation Auscultation: normal bowel sounds Skin: General skin exam: normal color Neuro: Other: Pupils equal and reactive bilaterally, EOMI, face symmetric, facial sensation intact, tongue protrudes midline, palate midline. Shoulder shrug normal. Strength
[2022-03-06 12:00] VITALS: BP 147/100; PULSE 64; PULSE 77; RESP 16; TEMP 36.7; O2SAT 97
--- NOTE | 2022-03-06 14:07 | PM.DS ---
DS: Admitting Diagnosis Discharge Date 03/06/22 Admitting Diagnosis Left arm and left face numbness DS: Discharge Diagnosis Discharge Diagnosis (1) Acute CVA (cerebrovascular accident): Code(s): I63.9 - Cerebral infarction, unspecified Status: Acute (2) CAD (coronary artery disease): Qualifiers: Coronary Disease-Associated Artery/Lesion type: unspecified vessel or lesion type [place] vs. transplanted heart: unspecified whether [place] or transplanted heart Associated angina: unspecified whether angina present Qualified Code(s): I25.10 - Atherosclerotic heart disease of [place] coronary artery without angina pectoris Code(s): I25.10 - Atherosclerotic heart disease of [place] coronary artery without angina pectoris Status: Acute (3) HLD (hyperlipidemia): Code(s): E78.5 - Hyperlipidemia, unspecified Status: Acute DS: Summary Hospital Course Reason for hospitalization: 52yo male here for left arm and left face numbness. Hospital Course: Patient admitted to medical floor on telemetry. EKG showed nonspecific T-wave changes. EKG was reviewed by myself. On telemetry, no evidence of atrial fibrillation. Echocardiogram showed EF of 55-60% and grade 1 diastolic dysfunction. Influenza, COVID and RSV negative. Other lab work was unrevealing. Troponin negative x3. Chest x-ray was reviewed by myself and was clear. Radiology concurred with this finding. Brain CT showed no significant abnormalities. Brain MRI did show a 8 mm focal acute infarct in the subcortical right frontal lobe white matter. Neurology was consulted. Carotid ultrasound showed less than 50% stenosis in the bilateral internal carotid arteries. CTA of the head showed small acute infarct to the right frontal lobe but no aneurysm or significant intracranial arterial stenosis. He was on Lipitor and baby aspirin on admission. Plavix was added to his regiment for 3 weeks. He has been up ambulating in the room without difficulty. No symptoms of dysphagia. BP mildly elevated at times but no intervention given the recent CVA. He overall did well was able to be discharged home on 03/06/2022. Status at Discharge Cognitive/behavioral status at discharge: Stable Time Spent with Patient Time attestation: Total time spent providing and/or coordinating discharge services: 35 minutes Time spent: Greater than 30 minutes Exam Narrative: Gen - NARD Chest - CTA bilaterally, nml RR CV - RRR S1/S2. Tele showing no significant dysrhythmias Abd - Soft, NT/ND, Positive BS Ext - No pedal edema Neuro - Alert and oriented. Nonfocal exam. Psych - Nml mood and affect Skin - Warm and dry Discharge Plan Discharge Attending physician on discharge: Jag Lee Consulting providers: Kathleen George Discharging Clinician: Jag Lee Anticipated Discharge Date/Time: 03/06/22 14:17 Patient Disposition: Home, Self-Care Activity: as tolerated Diet: heart healthy Discharge Instructions: Check blood pressure 1 to 2 times a day. Record and bring into your doctor for review. Call your doctor if your blood pressure is greater than 180/110. Take precautions to avoid falls. Rise slowly from a lying or sitting position. Pause before standing or walking. Contact your doctor or call 911 and come to the Emergency Room if you have recurrent neurologic symptoms or other worrisome symptoms. Avoid NSAIDs (ibuprofen, naproxen, Aleve). Tylenol is safe to take. Follow-up with your primary care provider in 1-2 weeks. Please call for appointment. Follow-up with Neurology in 4-6 weeks. Please call for an appointment. Thank you for using [facility] for your health care needs. Patient Instructions: Antibiotic Form Stand Alone Forms: General Discharge Information Follow-up/Referrals: Isaias Riojas MD [Primary Care Provider] - Call for Appointment Kathleen George MD [Physician] - Call for Appo
== END 2022-03-06 15:44 | disposition home or self-care (01) ==
LOC: ANHED 03-05 07:00 → ANH3MEDSUR 03-05 07:56
PROVIDERS: Admitting Provider Student in an Organized Health Care Education/Training Program; Emergency Provider Emergency Medicine; PCP Family Medicine; Visit Provider Internal Medicine
DX: I63.9 Cerebral infarction, unspecified (principal); I25.10 Atherosclerotic heart disease of native coronary artery without angina pectoris; E78.5 Hyperlipidemia, unspecified; I25.2 Old myocardial infarction; I11.9 Hypertensive heart disease without heart failure; F17.220 Nicotine dependence, chewing tobacco, uncomplicated; Z95.5 Presence of coronary angioplasty implant and graft; Z79.82 Long term (current) use of aspirin; Z20.822 Contact with and (suspected) exposure to COVID-19
CPT/HCPCS: 36415; 70450; 70496; 70553; 71046; 80053; 83690; 84484; 85025; 85610; 85730; 87637; 93005; 93880; 96374; 96375; 99285; A9270; A9577; C8929; G0378; Q9957; Q9967

== ENCOUNTER 2024-06-11 08:33 | Emergency (ER) | payer OTHER, SELFPAY ==
--- NOTE | ~2024-06-11 | XR_ITS ---
HISTORY: pain COMPARISON: 11/13/2019 TECHNIQUE: 4 views of the right shoulder were performed FINDINGS: No acute fracture. The glenohumeral joint space is maintained. The acromioclavicular joint space is narrow with osteophyte formation, an interval change from 020. The visualized portion of the adjacent right lung is clear. The humeral head is well seated within the glenoid fossa. IMPRESSION: Degenerative disease, without acute fracture or anterior dislocation. Reviewed, dictated and finalized at location A. IMPRESSION: Degenerative disease, without acute fracture or anterior dislocati on.
--- OUTSIDE RECORDS SUMMARY | 2024-06-11 08:44 | XMS_ITS | Encounter Summary ---
Author Organization [facility] Facility Care Team Providers Care Animal Tech Name Role Phone No, Physician Primary Care Provider [phone] Osiel Norris MD Primary Care Provider [phone] Silvestre June MD Unavailable [phone] Isaias Riojas MD Primary Care Provider Encounter Details Date Type Department Care Team (Latest Contact Info) Description 09/10/2014 Orders Only [facility] CLINCONV Provider, MD Jeremiah [address] [place] [id number] Social History Tobacco Use Types Packs/Day Years Used Date Smoking Tobacco: Never Assessed Sex and Gender Information Value Date Recorded Sex Assigned at Not on file 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 us Historical Provider Final Res ult documented in this encounter Visit Diagnoses Not on filedocumented in this encounter Care Teams Animal Tech Relationship Specialty Start Date End Date No, Physician PCP - General 07/16/18 09/17/18 Osiel Norris MD PCP - General Internal Medicine 09/18/18 09/29/19 Isiaas Riojas MD [address] [address] PCP - General Family Medicine 09/30/19 Silvestre June MD [address] [address] Car Sales Associate Cardiology 10/20/18 documented as of this encounter
--- OUTSIDE RECORDS SUMMARY | 2024-06-11 08:44 | XMS_ITS | Encounter Summary ---
Author Organization [facility] Healthcare Address [address] [place] [address] Care Team Providers Care Barrel Charrer Name Role Phone Silvestre June MD Unavailable [phone] Isaias Riojas MD Primary Care Provider Encounter Details Date Type Department Care Team (Late st Contact Info) Description 04/10/2022 Telephone [facility] Cardiac Forming Acid Dumper [address] [place] [address] Taisha Tejada, RN Social History Tobacco Use Types Packs/Day Years Used Date Smoking Tobacco: Former Cigarettes Q uit: 2006 Smokeless Tobacco: Current Comments:every so often Sex and Gender Information Value Date Recorded Sex Assigned at Not on file 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
--- OUTSIDE RECORDS SUMMARY | 2024-06-11 08:44 | XMS_ITS | Clinical Summary ---
Author Organization [facility] at [facility] Office Center Address [address] [place] [address] Care Team Providers Care Travel Med Surg Rn Name Role Phone Silvestre Jnue MD Unavailable [phone] Isaias Riojas MD Primary Care Provider Allergies Active Allergy Reactions Criticality Noted Date Comments Cephalexin Hives Medium 12/03/2018 Medications aspirin 81 mg enteric coated tablet Take 1 tablet (81 mg total) by mouth daily Active escitalopram (LEXAPRO) 10 mg tablet Take 1 tablet (10 mg total) by mouth daily 03/14/2022 Active ALPRAZolam (XANAX) 0.5 mg tablet Take 1 tablet (0.5 mg total) by mouth nightly as needed for anxiety Active nitroglycerin (NITROSTAT) 0.[address] 1 tablet (0.4 mg total) under the tongue every 5 (five) minutes as needed (Q5 min as needed) 25 tablet 04/16/2023 Active atorvastatin (LIPITOR) 80 mg tablet Take 1 tablet (80 mg total) by mouth daily 90 tablet 2 10/13/2023 Active metoprolol XL (TOPROL-XL) 25 mg extended release tablet Take 1 tablet (25 mg total) by mouth daily 90 tablet 3 04/28/2024 Active tirzepatide, weight loss, (Zepbound) 2.5 mg/0.5 mL pen injectorIndicat ions:Weight Loss Management for Obese Patient (BMI >= 30) Inject 0.5 mL (2.5 mg total) under the skin every 7 days 0.5 mL 1 04/28/2024 Active Active Problems Problem Noted Date Diagnosed Date Severe obesity 04/28/2024 TIA (transient ischemic attack) 03/18/2022 Assessment & Plan (03/18/2022 3:48 PM SUBSTATION ENGINEER): He is followed by neurologist. Continue aspirin and Plavix at this time. Given the TIA stroke symptoms I will schedule him to have LIBRA with bubble study to rule out any intracardiac thrombus or shunt. Also recommended 30 day event monitor to rule out any occult atrial fibrillation. I will try to obtain the lab results and also test results from [facility]. Procedure and complications of the LIBRA discussed in detail. Patient understood agreed proceed with. Procedure and complications of the LIBRA and moderate sedation discussed in great detail with the patient. Patient aware of all the risks including but not limited to aspiration, pneumonia, ARDS, sepsis, mucosal tears, esophageal perforation, bleeding, need for blood transfusion, emergency surgery, intubation, allergic reactions to medications, loss of tooth, and also. Atypical chest pain 03/18/2022 Assessment & Plan (03/18/2022 3:43 PM SUBSTATION ENGINEER): Chest pain is very atypical. I do not think disease angina. As he had recent TIA with infarction by MRI as per patient I will hold on the stress. After the LIBRA and event monitor then plan stress test. Mixed hyperlipidemia 12/25/2020 Assessment & Plan (03/18/2022 3:44 PM SUBSTATION ENGINEER): Apparently had lipids done at [facility] when he went there. I will try to obtain the lipids and LFTs also. Weight gain 09/30/2019 History of coronary artery stent placement 11/12 Overview (12/03/2018): Patient had a stent placement in RCA, LAD and circumflex in 2006. Last stress test is negative in September 2011 Atherosclerotic heart diseas e of [place] coronary artery without angina pectoris 11/10/2015 Assessment & Plan (03/18/2022 3:45 PM SUBSTATION ENGINEER): No specific angina noted at this time. But he had atypical chest pain. After the event monitor I will plan stress test. Advised him to contact me if he has any symptomswhile waiting for the test. Continue aspirin Obesity 08/22/2015 Resolved Problems Problem Noted Date Diagnosed Date Resolved Date Dyslipidemia 12/03/2018 12/25/2020 Encounters Date Type Department Care Team Description 04/28/2024 2:00 PM CDT Office Visit [facility] Medical Group Cardiology [address] [place] [address] Fani Dyer NP Atherosclerosis of [place] coronary artery [place] heart without angina pectoris (Primary Dx); Mixed hyperlipidemia; History of coronary artery stent placement; Lipid screening; Obesity due to excess calories, unspecified class, unspecified whether serious comorbidity present; Severe obesity (HCC) 04/26/2024 Telephone [facility] Medical [facility] Cardiology [address] [place] [id number] Ed Jha MD from Last 3 Months Surgical History Surgery Date Site/Laterality Comments CARDIAC STENT PLACEMENT CORONARY ANGIOPLASTY 02/17/2006 - 02/16/2007 CARDIAC CATHETERIZATION Medical History Medical History Date Comments HLD (hyperlipidemia) CAD (coronary artery disease) Obesity TIA (transient ischemic attack) Family History Medical History Relation Name Comments Heart disease Father Relation Name Status Comments Father Alive Mother Alive Social History Tobacco Use Types Packs/Day Years Used Date Smoking Tobacco: Former Cigarettes Q uit: 2006 Smokeless Tobacco: Current Tobacco Cessation:Ready to Q uit: Not Asked; Counseling Given: Not Answered Comments:every so often Personal Safety Answer Date Recorded Getting School Help Needed Denies 01/30 Sex and Gender Information Value Date Recorded Sex Assigned at Not on file Legal Sex Male 1:16 PM SUBSTATION ENGINEER Gender Identity Not on file Sexual Orientation Not on file Obstetrics History Last Filed Vital Signs Vital Sign Reading Time Taken Comments Blood Pressure 130/90 04/28/2024 2:06 PM CDT Pulse 80 04/28/2024 2:06 PM CDT Temperature 36.9 C (98.5 F) 05/27/2021 11:25 AM CDT Respiratory Rate 14 04/11/2022 12:30 PM SUBSTATION ENGINEER Oxygen Saturation 98% 04/28/2024 2:06 PM CDT Inhaled Oxygen Concentration - - Weight 119.7 kg (264 lb) 04/28/2024 2:06 PM CDT Height 180.3 cm (5' 11 ) 04/28/2024 2:06 PM CDT Body Mass Index 36.82 04/28/2024 2:06 PM CDT Plan of Treatment Health Maintenance Due Date Last Done Comments Colon Cancer Screening-Colonoscopy 1971 Depression Screening 1971 Hepatitis C Screening 1971 Prostate Cancer Screening-PSA 1971 DTaP/Tdap/Td Vaccine (1 - Tdap) 1982 Hepatitis B Screening 1989 Regular Well Visit/Exam 18-64 1989 Zoster Vaccine (1 of 2) 2021 Influenza Vaccine (Season Ended) 2024 12/21/2014, 02/28/2013, 03/07/2012 Pneumococcal vaccine <65 Aged Out No longer eligible based on patient's age to complete this topic Procedures Procedure Name Priority Date/Time Associated Diagnosis Comments POCT LIPID PANEL Routine 04/28/2024 2:11 PM CDT Lipid screening from Last 3 Months Results * POCT lipid panel (04/28/2024 2:11 PM CDT) Cholesterol, POC 161 mg/dL HDL, POC 30 mg/dL Triglycerides, POC 115 mg/dL LDL Cholesterol POC 108 mg/dL Chol/HDL Ratio, POC 3.6 Non-HDL Cholesterol, POC 131 mg/dL Cholesterol Total, POC 161 mg/dL Capillary blood 04/28/2024 2 :11 PM CDT Fani Dyer NP POINT OF CARE TEST ORDERABLE S Final Result from Last 3 Months Insurance [facility] Advance Directives For more information, please contact: [phone] * Full Code (Latest Code Status on File) Date Activated Date Inactivated Comments 04/11/2022 11:21 AM 04/12/2022 4:48 AM Care Teams Travel Med Surg Rn Relationship Specialty Start Date End Date Isaias Riojas MD [address] [facility] [address] [facility] [address] [place] [address] PCP - General Family Medicine 09/30/19 Silvestre June MD [address] [facility] [address] [place] [address] [address] Fitness Instructor Cardiology 10/20/18
--- OUTSIDE RECORDS SUMMARY | 2024-06-11 08:44 | XMS_ITS | Encounter Summary ---
Author Organization [facility] Facility Care Team Providers Care Sub Assembly Team Worker Name Role Phone No, Physician Primary Care Provider [phone] Osiel Norris MD Primary Care Provider [phone] Silvestre June MD Unavailable [phone] Isaisa Riojas MD Primary Care Provider Encounter Details Date Type Department Care Team (Latest Contact Info) Description 01/10/2017 Orders Only [facility] CLINCONV Provider, MD Jeremiah [address] [place] [id number] Social History Tobacco Use Types Packs/Day Years Used Date Smoking Tobacco: Never Assessed Sex and Gender Information Value Date Recorded Sex Assigned at Not on file Legal Sex Male 1:16 PM METAL HARDENER Gender Identity Not on file Sexual Orientation Not on file documented as of this encounter Plan of Treatment Not on file documented as of this encounter Procedures Procedure Name Priority Date/Time Associated Diagnosis Comments SCAN - LABS 01/19/2018 12:00 AM METAL HARDENER documented in this encounter Results * SCAN - LABS (01/19/2018 12:00 AM METAL HARDENER) Narrative 01/19/2018 12:00 AM METAL HARDENER Ordered by an unspecified provider. us Historical Provider Final Res ult documented in this encounter Visit Diagnoses Not on filedocumented in this encounter Care Teams Sub Assembly Team Worker Relationship Specialty Start Date End Date No, Physician PCP - General 07/16/18 09/17/18 Osiel Norris MD PCP - General Internal Medicine 09/18/18 09/29/19 Isaias Riojas MD [address] [place] [id number] PCP - General Family Medicine 09/30/19 Silvestre June MD [address] [address] Agate Setter Cardiology 10/20/18 documented as of this encounter
--- OUTSIDE RECORDS SUMMARY | 2024-06-11 08:44 | XMS_ITS | Referral Summary ---
Author Organization [facility] Office [facility] Address [address] [place] [address] Care Team Providers Care Traffic Assistant Name Role Phone Silvestre June MD Unavailable [phone] Isaias Riojas MD Primary Care Provider Encounters Date Type Department Care Team Description 04/28/2024 2:00 PM CDT Office Visit [facility] Medical [facility] Cardiology [address] [place] [address] Fani Dyer NP Atherosclerosis of [place] coronary artery of [place] heart without angina pectoris (Primary Dx); Mixed hyperlipidemia; History of coronary artery stent placement; Lipid screening; Obesity due to excess calories, unspecified class, unspecified whether serious comorbidity present; Severe obesity (HCC) 04/26/2024 Telephone [facility] Medical [facility] Cardiology [address] [place] [address] Ed Jha MD from Last 3 Months Allergies Active Allergy Reactions Criticality Noted Date [...] 03/18/2022 Assessment & Plan (03/18/2022 3:48 PM MEDICARE CONTACT SPECIALIST): He is followed by neurologist. Continue aspirin and Plavix at this time. Given the TIA stroke symptoms I will schedule him to have LIBRA with bubble study to rule out any intracardiac thrombus or shunt. Also recommended 30 day event monitor to rule out any occult atrial fibrillation. I will try to obtain the lab results and also test results from [facility]. Procedure and complications of [...] 03/18/2022 Assessment & Plan (03/18/2022 3:43 PM MEDICARE CONTACT SPECIALIST): Chest pain is very atypical. I do not think disease angina. As he had recent TIA with infarction by MRI as per patient I will hold on the stress. After the LIBRA and event monitor then plan stress test. Mixed hyperlipidemia 12/25/2020 Assessment & Plan (03/18/2022 3:44 PM MEDICARE CONTACT SPECIALIST): Apparently had lipids done at [facility] when he went there. I will try to obtain the lipids and LFTs also. Weight gain 09/30/2019 History of coronary artery stent placement 11/12 Overview (12/03/2018): Patient had a stent placement in RCA, LAD and circumflex in 2006. Last stress test is negative in September 2011 Atherosclerotic heart diseas e of [place] coronary artery without angina pectoris 11/10/2015 Assessment & Plan (03/18/2022 3:45 PM MEDICARE CONTACT SPECIALIST): No specific angina noted at this time. But he had atypical chest pain. After the event monitor I will plan stress test. Advised him to contact me if he has any symptomswhile waiting for the test. Continue aspirin Obesity 08/22/2015 Resolved Problems Problem Noted Date Diagnosed Date Resolved Date Dyslipidemia 12/03/2018 12/25/2020 Social History Tobacco Use Types Packs/Day Years Used Date Smoking Tobacco: Former Cigarettes Q uit: 2006 Smokeless Tobacco: Current Tobacco Cessation:Ready to Q uit: Not Asked; Counseling Given: Not Answered Comments:every so often Personal Safety Answer Date Recorded Getting School Help Needed Denies 01/30 Sex and Gender Information Value Date Recorded Sex Assigned at Not on file Legal Sex Male 1:16 PM MEDICARE CONTACT SPECIALIST Gender Identity Not on file Sexual Orientation Not on file Last Filed Vital Signs Vital Sign Reading Time Taken Comments Blood Pressure 130/90 04/28/2024 2:06 PM CDT Pulse 80 04/28/2024 2:06 PM CDT Temperature 36.9 C (98.5 F) 05/27/2021 11:25 AM CDT Respiratory Rate 14 04/11/2022 12:30 PM MEDICARE CONTACT SPECIALIST Oxygen Saturation 98% 04/28/2024 2:06 PM CDT Inhaled Oxygen Concentration - - Weight 119.7 kg (264 lb) 04/28/2024 2:06 PM CDT Height 180.3 cm (5' 11 ) 04/28/2024 2:06 PM CDT Body Mass Index 36.82 04/28/2024 2:06 PM CDT Plan of Treatment Not on file Procedures Procedure Name Priority Date/Time Associated Diagnosis [...] Capillary blood 04/28/2024 2 :11 PM CDT us Fani Dyer NP POINT OF CARE TEST ORDERABLE S Final Result from Last 3 Months Insurance [facility] Advance Directives For more information, please contact: [phone] * Full Code (Latest Code Status on File) Date Activated Date Inactivated Comments 04/11/2022 11:21 AM 04/12/2022 4:48 AM Care Teams Traffic Assistant Relationship Specialty Start Date End Date Isaias Riojas MD [address] [place] [id number] PCP - General Family Medicine 09/30/19 Silvestre June MD [address] [facility] [address] [address] Guide Domestic Tour Cardiology 10/20/18
--- OUTSIDE RECORDS SUMMARY | 2024-06-11 08:44 | XMS_ITS | Clinical Summary ---
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 [employer] Gender Identity Not on file Sexual Orientation Not on file Plan of Treatment Health Maintenance Due Date Last Done Comments Hepatitis C Virus (HCV) Screening 1971 TdaP Immunization 1971 Hepatitis B Immunization (1 of 3 - 19+ 3-dose series) 1990 Colonoscopy 01/26/2016 Colorectal Cancer Screening 01/26/2016 Cologuard 2021 Immunochemical Fecal Occult Blood 2021 Pneumococcal Immunization (50+ years) (1 of 1 - PCV) 2021 Zoster Immunization (1 of 2) 2021 Influenza Immunization (#1) 10/19/202311/18, 12/21/2014, 02/28/2013, Additional history exists SARS-COV-2 Immunization ( - 2023- season) 2023 Respiratory Syncytial Virus (RSV) Immunization (Adult) (1 - 1-dose 75+ series) 2046 Meningococcal Immunization (ACWY) Aged Out No longer eligible based on patient's age to complete this topic Pneumococcal Immunization Combined Aged Out No longer eligible based on patient's age to complete this topic Rotavirus Immunization Aged Out No lo nger eligible based on patient's age to complete this topic
[2024-06-11 08:51] VITALS: BP 159/106; PULSE 65; RESP 16; TEMP 36.6; O2SAT 98
--- NOTE | 2024-06-11 09:24 | ED_ITS ---
HPI - General Adult General Chief complaint: Extremity Injury, Upper Stated complaint: i think i have a rotator cuff issue Time Seen by Provider: 06/11/24 08:37 History of Present Illness HPI narrative: 54-year-old male presenting to the emergency department for evaluation for right shoulder pain that has acutely worsened. 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 Patient denies any specific incident of fall or injury. Patient does have follow-up with Orthopedics on June 22. Patient denies any associated numbness weakness but does have inability to raise his right arm above his head secondary to pain Related Data Home Medications ?Medication ?Instructions ?Recorded ?Confirmed ?Last Taken ?Type aspirin 81 mg tablet,delayed 81 mg PO DAILY 04/14/19 03/16/24 03/25/21 History release atorvastatin 80 mg tablet 80 mg PO DAILY 04/14/19 03/16/24 03/25/21 History metoprolol succinate 25 mg 25 mg PO DAILY 04/14/19 03/16/24 03/25/21 History tablet,extended release 24 hr Allergies Allergy/AdvReac Type Severity Reaction Status Date / Time cephalexin Allergy Severe rash Verified 04/06/24 13:15 tramadol AdvReac Mild Sweating Uncoded 04/06/24 13:15 Review of Systems Review of Systems: All systems reviewed & are unremarkable except as noted in HPI and below PMFSH Past Medical History Medical History Lateral epicondylitis of right elbow Medial epicondylitis, left elbow Cubital tunnel syndrome Lateral epicondylitis Numbness and tingling of both upper extremities Right lateral epicondylitis Other spondylosis with radiculopathy, lumbar region Arthritis of left hip Weight gain 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 Arthritis Anxiety HLD (hyperlipidemia) Old [place] (myocardial infarction) CAD (coronary artery disease) Hypertension with heart disease Surgical History Surgical History H/O excision of mass 03/01/21 excision of 3 cm back mass Back mass 2012 Status post primary angioplasty with coronary stent x3 2007 Family History Family History Other HLD (hyperlipidemia) Hypertension Social History Social History Smoking status: Former smoker Tobacco type: cigarettes Second hand tobacco smoke exposure: No Smoking end date: 02/17/06 Additional smoking assessment comments: Former smoker of Cigarettes Alcohol intake: never Alcohol use details: rare Substance use: never Substance use type: does not use Lack of Transportation: No Lack of Food: Never True Current Housing: I Have Housing Concerned About Future Housing: No Difficulty Paying Gas/Electric Bills: No Difficulty Paying for Meds: No Currently Unemployed: No Education: Associate Degree Difficulty w/ Childcare or Family Care: No Living arrangements: with family Occupation/Education: occupation 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 HEAD: normocephalic, atraumatic. EYES: PERRLA/EOMI, conjunctivae clear. NOSE: Normal no drainage EARS:TMS clear with good light reflex. THROAT: Pharynx clear, no exudate. NECK: Supple. No adenopathy, no masses. RESPIRATORY: Airway patent, respirations nonlabored. Clear to auscultation bilaterally, no rales, rhonchi, wheezing. CARDIOVASCULAR: Regular rate and rhythm without murmurs rubs or gallops. ABDOMINAL: Soft, nontender, nondistended, normal bowel sounds MUSCULOSKELETAL: Limited range of motion of right shoulder NEURO: Alert. Cranial nerves II through XII intact. Good gait. Good coordination SKIN: Warm, dry. Normal Color Course Vital Signs Vital signs: Vital Signs Temperature 97.9 F 06/11/24 08:51 Pulse Rate 65 06/11/24 08:51 Respiratory Rate 16 06/11/24 08:51 Blood Pressure 159/106 H 06/11/24 08:51 Pulse Oximetry 98 06/11/24 08:51 Oxygen Delivery Room Air 06/11/24 08:51 Temperature 97.9 F 06/11/24 09:39 Pulse Rate 68 06/11/24 09:39 Respiratory Rate 16 06/11/24 09:39 Blood Pressure 150/98 H 06/11/24 09:39 Pulse Oximetry 100 06/11/24 09:39 Oxygen Delivery Room Air 06/11/24 08:51 Medical Decision Making MDM Narrative Medical decision making narrative: 54-year-old male presents emergency department for evaluation for right shoulder pain. X-ray was negative for acute fracture dislocation. Concern for rotator cuff strain. Patient was provided anti-inflammatories and a sling for comfort. Patient will follow-up on June 22 with Orthopedics. Differential Diagnosis Differential Diagnosis: Shoulder fracture, shoulder dislocation, rotator cuff strain, rotator cuff tear Vital Signs Vital Signs: Vital Signs Temperature 97.9 F 06/11/24 08:51 Pulse Rate 65 06/11/24 08:51 Respiratory Rate 16 06/11/24 08:51 Blood Pressure 159/106 H 06/11/24 08:51 Pulse Oximetry 98 06/11/24 08:51 Oxygen Delivery Room Air 06/11/24 08:51 Temperature 97.9 F 06/11/24 09:39 Pulse Rate 68 06/11/24 09:39 Respiratory Rate 16 06/11/24 09:39 Blood Pressure 150/98 H 06/11/24 09:39 Pulse Oximetry 100 06/11/24 09:39 Oxygen Delivery Room Air 06/11/24 08:51 Imaging Data Radiologist's impression: Impressions Shoulder X-Ray 06/11/24 09:09 IMPRESSION: Degenerative disease, without acute fracture or anterior dislocation. Discharge Plan Discharge Clinical Impression: Rotator cuff strain Patient Disposition: Home Condition: Stable Instructions: Antibiotic Form, Rotator Cuff Injury (ED), How to Use a Sling (ED) Additional Instructions: Sling for comfort. Tylenol and ibuprofen for pain control. Medrol Dosepak as directed. Have close follow-up with Orthopedics. Patient Language: Angolan Prescriptions: New methylprednisolone [Medrol (Frank)] 4 mg tablets,dose pack See Rx Instructions .ROUTE .COMPLEX Qty: 21 0RF Rx Instructions: for 6 days No Action metoprolol succinate 25 mg tablet extended release 24 hr 25 mg PO DAILY atorvastatin 80 mg tablet 80 mg PO DAILY aspirin 81 mg tablet,delayed release (DR/EC) 81 mg PO DAILY alprazolam 0.5 mg tablet 0.5 mg PO BID PRN (Reason: anxiety) Qty: 30 0RF escitalopram oxalate 10 mg tablet See Rx Instructions .ROUTE .COMPLEX Qty: 90 1RF Dose Instruction: TAKE ONE BY MOUTH DAILY Rx Instructions: TAKE ONE BY MOUTH DAILY Follow-up/Referrals: Isaias Riojas MD [Primary Care Provider] -
[2024-06-11 09:39] VITALS: BP 150/98; PULSE 68; RESP 16; TEMP 36.6; O2SAT 100
== END 2024-06-11 09:40 | disposition home or self-care (01) ==
PROVIDERS: Emergency Provider Emergency Medicine; PCP Family Medicine
DX: S46.011A Strain of muscle(s) and tendon(s) of the rotator cuff of right shoulder, initial encounter (principal); I25.2 Old myocardial infarction; I25.10 Atherosclerotic heart disease of native coronary artery without angina pectoris; I11.9 Hypertensive heart disease without heart failure; E78.5 Hyperlipidemia, unspecified; M16.12 Unilateral primary osteoarthritis, left hip; M19.011 Primary osteoarthritis, right shoulder; Z87.891 Personal history of nicotine dependence; Z79.899 Other long term (current) drug therapy; Z79.82 Long term (current) use of aspirin; X58.XXXA Exposure to other specified factors, initial encounter
CPT/HCPCS: 73030; 99283; A4565

== ENCOUNTER 2024-07-10 08:51 | Outpatient (CLI) | payer OTHER, SELFPAY ==
--- NOTE | ~2024-07-10 | MR_ITS ---
MRI of the right shoulder Technique: Axial proton-density fat-sat images, coronal proton density fat-sat and T2 fat-sat images, and sagittal T1-weighted and T2 fat-sat images were acquired. Clinical History: Rotator cuff tear Findings: There is mild AC joint degenerative change. Coracoclavicular, coracoacromial, and coracohum eral joints are intact. There is a 3 mm focal low-grade articular surface partial tear of the distal supraspinatus tendon ins ertion. No high-grade partial or full-thickness tear of the supraspinatus or infraspinatus tendon is seen. Subscapularis tendon intact. Tendon of the long head of the biceps is intact. There is a probable poorly delineated tear at the anteroinferior labrum with associated large multise ptated labral cyst inferior to the glenoid, measuring 2.2 x 2.0 x 2.5 cm in overall dimension. Inferior glenohumeral ligament is intact. There is minimal degenerative change of glenohumeral joint. No significant joint effusion. No fluid distention of the subacromial/subdeltoid bursa. No muscle at rophy or edema. Impression: Anteroinferior labral tear with 2.2 x 2.0 x 2.5 cm associated labral cyst inferior to the glenoid. 3 mm focal low-grade articular surface partial tear of the distal supraspinatus tendon insertion. Mild AC joint degenerative change. Reviewed, dictated and finalized at [facility]. Impression: Anteroinferior labral tear with 2.2 x 2.0 x 2.5 cm associated labral cyst infer ior to the glenoid. 3 mm focal low-grade articular surface partial tear of the distal supraspinatus tendon insertion. Mild AC joint degenerative change.
== END 2024-07-10 08:52 | disposition home or self-care (01) ==
LOC: MICIMG 08:51
PROVIDERS: PCP Family Medicine; Visit Provider Nurse Practitioner Family
DX: M75.101 Unspecified rotator cuff tear or rupture of right shoulder, not specified as traumatic (principal); M19.011 Primary osteoarthritis, right shoulder
CPT/HCPCS: 73221

== ENCOUNTER 2024-08-25 08:07 | Outpatient (CLI) | payer OTHER, SELFPAY ==
--- NOTE | ~2024-08-25 | XR_ITS ---
3 VIEWS LUMBAR SPINE Ordering provider: Bud Arora PA-C History: . M54.50 - Low back pain, unspecified . Comparison: March 07, 2021 FINDINGS: VERTEBRAL BODIES: No visible fracture or subluxation. Degenerative changes of the spine. DISK SPACES: Narrowing of the disc L4-L5 and L5-S1. Multilevel facet joint disease. SOFT TISSUES: Aortic atherosclerotic changes. IMPRESSION: No acute osseous abnormality lumbar spine. Multilevel degenerative disc disease. No significant change from previous examination. Reviewed, dictated and finalized at location A.
--- NOTE | ~2024-08-25 | XR_ITS ---
XR sacroiliac joints min 3V Ordering provider: Bud Arora PA-C History: . M54.50 - Low back pain, unspecified . Comparison: None. FINDINGS: BONES: No acute fracture or dislocation. Sclerotic lesion seen in the proximal left femur which may b e bone island. JOINTS: The bilateral sacroiliac joint spaces shows bilateral sacroiliitis. No bony fusion of the sac roiliac joints. Mild degenerative changes of the spine. Mild bilateral hip osteoarthritic changes. SOFT TISSUES: Unremarkable. IMPRESSION: NO ACUTE OSSEOUS ABNORMALITY. Bilateral sacroiliacs. Reviewed, dictated and finalized at location A.
== END 2024-08-25 08:08 | disposition home or self-care (01) ==
LOC: MICIMG 08:08
PROVIDERS: PCP Family Medicine; Visit Provider Physician Assistant
DX: M53.3 Sacrococcygeal disorders, not elsewhere classified (principal); M51.369 Other intervertebral disc degeneration, lumbar region without mention of lumbar back pain or lower extremity pain
CPT/HCPCS: 72110; 72202